=== PATIENT | male | born 1990 | race Caucasian/White ===

== ENCOUNTER 2022-10-19 03:24 | Emergency (ER) | payer MEDICAID ==
[~2022-10-19] VITALS: Ht 180.3 cm; Wt 88.6 kg
[2022-10-19] MEDS ORDERED: normal saline 1000ML IV soln IVB ONE (04:30)
[2022-10-19] MEDS ORDERED: ondansetron/PF 4mg/2ml inj IV ONE (04:30)
[2022-10-19] MEDS ORDERED: folic acid 1mg/0.2ml inj IV ONE (04:35)
--- NOTE | 2022-10-19 04:40 | NUR ---
IV established. IVF infusing. Tech bedside for EKG. Pt tremorous, cooperative. Friend bedside.
[2022-10-19] MEDS ORDERED: thiamine 100mg/ml 2ml inj. IV ONE (04:50)
[2022-10-19 07:03] LABS: CLARITY,URINE SLIGHTLY CLOUDY (Clear); COLOR,URINE AMBER (Yellow)
[2022-10-19 07:07] VITALS: BP 137/94
[2022-10-19 07:14] LABS: UA COLLECTION TYPE VOIDED
[2022-10-19 07:17] LABS: ALANINE AMINOTRANSFERASE 225 U/L (12-78); ALBUMIN/GLOBULIN RATIO 1.1 (1.1-1.5); ALKALINE PHOSPHATASE 113 IU/L (46-116); ANION GAP 17 (8-16); ASPARTATE AMINO TRANSFERASE 275 U/L (10-37); BILIRUBIN,TOTAL 2.2 MG/DL (0.1-1.0); BLOOD UREA NITROGEN 7 MG/DL (7-18); BUN/CREATININE RATIO 10.8 (5.4-32.0); CALCIUM 8.2 MG/DL (8.5-10.1); CHLORIDE 102 MMOL/L (99-107); CREATININE 0.65 MG/DL (0.60-1.10); ETHANOL 0.223 GM/DL (0.0-0.010); GLUCOSE 80 MG/DL (70-104); MAGNESIUM 1.4 MG/DL (1.5-2.4); SODIUM 142 MMOL/L (135-145); TOTAL CARBON DIOXIDE 23.4 MMOL/L (24-32); TOTAL PROTEIN 7.8 G/DL (6.4-8.2); eGFR > 90 ML/MIN
[2022-10-19 07:22] LABS: BASOPHILS % (AUTO) 0.2 % (0-1); EOSINOPHILS % (AUTO) 0.1 % (0-6); HEMATOCRIT 39.9 % (42.0-52.0); HEMOGLOBIN 13.6 g/dl (14.0-17.9); LYMPHOCYTES # (AUTO) 0.6 X10'3 (1.1-4.8); LYMPHOCYTES % (AUTO) 8.1 % (21-51); MEAN CORPUSCULAR HEMOGLOBIN 37.9 PG (27.0-31.0); MEAN CORPUSCULAR VOLUME 111.4 FL (78-98); MEAN PLATELET VOLUME 9.7 FL (7.4-10.4); MONOCYTES # (AUTO) 0.4 X10'3 (0-0.9); MONOCYTES % (AUTO) 5.3 % (2-12); NEUTROPHILS # (AUTO) 6.9 X10'3 (1.8-7.7); NEUTROPHILS % (AUTO) 86.3 % (42-75); PLATELET COUNT 95 X10'3 (140-440); POTASSIUM 3.7 MMOL/L (3.5-5.1); RED BLOOD COUNT 3.58 X10'6 (4.70-6.10); RED CELL DISTRIBUTION WIDTH 17.2 % (11.5-14.5); WHITE BLOOD COUNT 7.9 X10'3 (4.5-11.0)
[2022-10-19 07:23] LABS: MUCUS STRANDS MANY /LPF (Neg); SQUAMOUS EPITHELIAL CELL,UR FEW /LPF (FEW)
[2022-10-19 07:25] LABS: CAL OXALATE CRYSTALS 3+ /HPF (NEGATIVE); HYALINE CASTS 0-3 /LPF (NEGATIVE)
[2022-10-19 07:26] LABS: WBC,URINE 0-4 /HPF (0-4)
[2022-10-19 07:28] LABS: BACTERIA,URINE FEW /HPF (Neg)
[2022-10-19] MEDS ORDERED: ringers solution, lacted 1,000 ML IV ONE (07:35)
[2022-10-19] MEDS ORDERED: magnesium 2GM in 50ml NS 50 ML IV ONE (07:35)
[2022-10-19 07:43] LABS: LIPASE 409 U/L (73-393)
[2022-10-19 07:44] LABS: BILIRUBIN,DIRECT 1.6 MG/DL (0-0.3)
[2022-10-19 07:46] LABS: ANISOCYTOSIS 1+; PLATELET ESTIMATE DECREASED; STOMATOCYTES 2+; TEAR DROP CELLS FEW
--- NOTE | 2022-10-19 09:00 | NUR ---
Pt given and understands d/c instructions. Ambulatory with a slow gait.
== END 2022-10-19 09:01 | disposition home or self-care (01) ==
LOC: ER 03:25
DX: F10.129 Alcohol abuse with intoxication, unspecified (principal); Y90.9 Presence of alcohol in blood, level not specified; E83.42 Hypomagnesemia; R79.89 Other specified abnormal findings of blood chemistry; Z88.1 Allergy status to other antibiotic agents
CPT/HCPCS: 36415; 80053; 80320; 81001; 82248; 83690; 83735; 85008; 85025; 93005; 96361; 96374; 96375; 99284; J2405; J3411; J3490; J7030